=== PATIENT | female | born 1990 | race Caucasian/White ===

== ENCOUNTER 2018-10-16 10:27 | Inpatient (IN) | payer SELFPAY ==
[2018-10-16] MEDS ORDERED: Butorphanol 1 MG/ML SDV IVPUSH PRN (10:57)
[2018-10-16] MEDS ORDERED: Misoprostol 200 MCG Tab PO PRN (10:57)
[2018-10-16] MEDS ORDERED: Lidocaine 1% 50 ML MDV INJECT PRN (10:57)
[2018-10-16] MEDS ORDERED: Nalbuphine 10 MG/1 ML Vial IVPUSH PRN (10:57)
[2018-10-16] MEDS ORDERED: Methylergonovine 0.2 MG/1 ML Amp IM PRN (10:57)
[2018-10-16] MEDS ORDERED: Sodium Chloride 0.9% 10 ML Syringe FLUSH PRN (10:57)
[2018-10-16] MEDS ORDERED: Carboprost Tromethamine 250 MCG/1 ML Amp IM PRN (10:57)
[2018-10-16] MEDS ORDERED: Water For Irrigation,Sterile 1,000 ML Container IRR PRN (10:57)
[2018-10-16] MEDS ORDERED: Sodium Chloride 0.9% 2.5 ML Syringe FLUSH PRN (10:57)
[2018-10-16] MEDS ORDERED: Tranexamic Acid 1,000 MG in Sodium Chloride 0.9% 100 ML IV PRN (10:57)
[2018-10-16] MEDS ORDERED: Oxytocin/0.9 % Sodium Chloride 30 UNIT/500 ML BAG IV SCH ×3 (11:00→19:30)
[2018-10-16] MEDS ORDERED: Misoprostol 25 MCG (1/4 of 100 MCG) Tab VAG PRN ×2 (11:21)
[2018-10-16] MEDS ORDERED: Terbutaline 1 MG/ML SDV SUBCUT PRN (11:21)
[2018-10-16] MEDS ORDERED: Misoprostol 25 MCG (1/4 of 100 MCG) Tab PO ONE (11:23)
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
[2018-10-16] MEDS ORDERED: Misoprostol 25 MCG (1/4 of 100 MCG) Tab PO PRN (16:13)
[2018-10-16] MEDS ORDERED: fentaNYL 100 MCG/2 ML SDV ONE (17:15)
[2018-10-16] MEDS ORDERED: Ropivacaine 0.2% 2 MG/ML 20 ML SDV ONE (17:16)
[2018-10-16] MEDS: Lactated Ringers 1,000 ML IV SCH ×2 (17:20→21:28)
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
[2018-10-16] MEDS ORDERED: Nicotine 7 MG/24 Hr Patch TRDERM SCH (21:04)
[2018-10-17] MEDS: Lactated Ringers 1,000 ML IV SCH (03:51)
[2018-10-17] MEDS ORDERED: Docusate Sodium 100 MG Cap PO PRN (05:26)
[2018-10-17] MEDS ORDERED: Bisacodyl 10 MG Supp RECTAL PRN (05:26)
[2018-10-17] MEDS ORDERED: Lanolin 100% Cream 7 GM Tube TOP PRN (05:26)
[2018-10-17] MEDS ORDERED: Ibuprofen 400 MG Tab PO PRN (05:26)
[2018-10-17] MEDS ORDERED: Witch Hazel Medicated Pads 40/Jar TOP PRN (05:26)
[2018-10-17] MEDS ORDERED: Acetaminophen 500 MG Tab PO PRN (05:26)
[2018-10-17] MEDS ORDERED: Benzocaine/Menthol 20%-0.5% Spray 78 GM Cannister TOP PRN (05:26)
[2018-10-17] MEDS ORDERED: oxyCODONE 5 MG Tab PO PRN (05:26)
--- NOTE | 2018-10-17 06:24 | OR ---
SURGEON: Angel Franco MD DATE OF PROCEDURE: Ms. Waldron is a 28-year-old patient. She is para 2-0-0-2. She is followed in our clinic primarily by me. Her care was uncomplicated. Her GBS status was negative. She is admitted for elective induction with Cytotec and Pitocin. She responded to both of them, and she had an artificial rupture of the membrane at 4 cm, and she had epidural anesthesia for labor analgesia, and she required Pitocin augmentation. The patient progressed nicely, and heart rate was category I. Then, she was able to accomplish normal spontaneous vaginal delivery of a male fetus, cried immediately. score and weight are not available at this time, and the placenta delivered spontaneous, complete, and intact. There was no perineal or labial laceration. Estimated blood loss is 250 to 300 mL during the process of labor. There was no complication in this labor and delivery process. KRYSTAL / LIZETTE /[id number]
[2018-10-17] MEDS: Acetaminophen 500 MG Tab PO PRN ×3 (07:09→20:08)
--- NOTE | 2018-10-17 08:37 | PCM48HPAN ---
Post Anesthesia Note - EVALUATION WITHIN 48HRS OF ANESTHETIC Vital Signs in Normal Range: Yes Patient Participated in Evaluation: Yes Respiratory Function Stable: Yes Airway Patent: Yes Cardiovascular Function Stable: Yes Hydration Status Stable: Yes Pain Control Satisfactory: Yes Nausea and Vomiting Control Satisfactory: Yes Mental Status Recovered: Yes Resp Rate: 17
[2018-10-17] MEDS: Ibuprofen 800 MG Tab PO PRN (18:27)
[2018-10-18] MEDS: Ibuprofen 800 MG Tab PO PRN ×2 (04:06→10:48)
[2018-10-18] MEDS: Acetaminophen 500 MG Tab PO PRN (08:35)
--- NOTE | 2018-10-18 11:53 | PCM.DCSUM1 ---
Discharge Summary - Hospital Course Free Text/Narrative:: Discharge home with infant. Follow up in 1 week for a blood pressure check and 6 weeks for visit. Diagnosis: Stroke: No - Discharge Data Discharge Date: 10/18/18 Discharge Disposition: Home, Self-Care 01 Condition: Good - Discharge Diagnosis/Problem(s) (1) (normal spontaneous vaginal delivery) SNOMED Code(s): 07396107 ICD Code: O80 - ENCOUNTER FOR FULL-TERM UNCOMPLICATED DELIVERY Status: Acute Priority: High Current Visit: Yes - Patient Instructions Diet: Usual Diet as Tolerated Activity: As Tolerated, No Strenuous Activities, Rest and Relax Today Driving: May Drive Today Showering/Bathing: May Shower Notify Provider of: Fever, Increased Pain, Swelling and Redness, Nausea and/or Vomiting Other/Special Instructions: Discharge home with . Follow up in 1 week for a blood pressure check and 6 weeks for visit. - Discharge Plan *PRESCRIPTION DRUG MONITORING PROGRAM REVIEWED*: Not Applicable *COPY OF PRESCRIPTION DRUG MONITORING REPORT IN PATIENT BOYD: Not Applicable Home Medications: Home Meds . [No Known Home Meds] 10/16/18 [History] Oxygen Therapy Mode: Room Air - Discharge Summary/Plan Comment DC Time >30 min.: Yes - General Info Date of Service: 10/18/18 Admission Dx/Problem (Free Text: Patient Status Order with Admit Dx/Problem 10/16/18 10:57 Patient Status [ADT] Routine Admission Diagnosis/Problem Admission Diagnosis/Problem Functional Status: Reports: Pain Controlled, Tolerating Diet, Ambulating, Urinating - Review of Systems General: Reports: No Symptoms HEENT: Reports: No Symptoms Pulmonary: Reports: No Symptoms Cardiovascular: Reports: No Symptoms Gastrointestinal: Reports: No Symptoms Genitourinary: Reports: No Symptoms Musculoskeletal: Reports: No Symptoms Skin: Reports: No Symptoms Neurological: Reports: No Symptoms Psychiatric: Reports: No Symptoms - Patient Data Vitals - Most Recent: Last Vital Signs Temp 36.2 C 10/18/18 08:00 Pulse 82 10/18/18 08:00 Resp 20 10/18/18 08:00 BP 141/90 H 10/18/18 08:00 Pulse Ox 98 10/18/18 08:00 Weight - Most Recent: 95.254 kg Lab Results - Last 24 hrs: Laboratory Results - last 24 hr 10/18/18 Range/Units 06:03 Hgb 9.9 L (12.0-16.0) g/dL Hct 31.1 L (36.0-46.0) % Med Orders - Current: Current Medications Acetaminophen (Tylenol Extra Strength) 500 mg PO Q4H PRN PRN Reason: Pain Acetaminophen (Tylenol Extra Strength) 1,000 mg PO Q4H PRN PRN Reason: Pain Last Admin: 10/18/18 08:35 Dose: 1,000 mg Benzocaine/Menthol (Dermoplast Pain Relief 20%-0.5% Lucinda) 78 gm TOP ASDIRECTED PRN PRN Reason: Perineal Comfort Measure Last Admin: 10/17/18 13:03 Dose: 78 gm Bisacodyl (Dulcolax) 10 mg RECTAL ONETIME PRN PRN Reason: Constipation Butorphanol Tartrate (Stadol) 1 mg IVPUSH Q1H PRN PRN Reason: Pain Carboprost Tromethamine (Hemabate Ds) 250 mcg IM ASDIRECTED PRN PRN Reason: Post Hemorrhage Docusate Sodium (Colace) 100 mg PO BID PRN PRN Reason: Constipation Emollient Ointment (Lansinoh Hpa) 0 gm TOP ASDIRECTED PRN PRN Reason: Sore Nipples Lactated Ringer's (Ringers, Lactated) 1,000 mls @ 150 mls/hr IV ASDIRECTED KESHA Last Infusion: 10/17/18 05:18 Dose: 0 mls/hr Oxytocin/Sodium Chloride (Oxytocin 30 Unit/500 Ml-Ns) 30 unit in 500 mls @ 500 mls/hr IV TITRATE KESHA Tranexamic Acid 1,000 mg/ (Sodium Chloride) 110 mls @ 660 mls/hr IV ONETIME PRN PRN Reason: Bleeding Oxytocin/Sodium Chloride (Oxytocin 30 Unit/500 Ml-Ns) 30 unit in 500 mls @ 2 mls/hr IV TITRATE KESHA; Protocol Oxytocin/Sodium Chloride (Oxytocin 30 Unit/500 Ml-Ns) 30 unit in 500 mls @ 2 mls/hr IV TITRATE KESHA; Protocol Last Titration: 10/17/18 05:18 Dose: 500 munits/min, 500 mls/hr Ibuprofen (Motrin) 400 mg PO Q4H PRN PRN Reason: Pain Ibuprofen (Motrin) 800 mg PO Q6H PRN PRN Reason: Pain Last Admin: 10/18/18 10:48 Dose: 800 mg Lidocaine HCl (Xylocaine 1%) 50 ml INJECT ONETIME PRN PRN Reason: Laceration repair Methylergonovine Maleate (Methergine) 0.2 mg IM ASDIRECTED PRN PRN Reason: Post Hemorrhage Misoprostol (Cytotec) 200 mcg PO ONETIME PRN PRN Reason: Post Hemorrhage Misoprostol (Cytotec) 25 mcg VAG ONETIME PRN PRN Reason: Cervical Ripening Last Admin: 10/16/18 11:58 Dose: 25 mcg Misoprostol (Cytotec) 25 mcg VAG Q4H PRN PRN Reason: Cervical Ripening Misoprostol (Cytotec) 25 mcg PO Q4H PRN PRN Reason: Other Nalbuphine HCl (Nubain) 10 mg IVPUSH Q1H PRN PRN Reason: Pain (severe 7-10) Nicotine (Habitrol) 7 mg TRDERM DAILY KESHA Last Admin: 10/16/18 21:39 Dose: 7 mg Oxycodone HCl (Oxycodone) 5 mg PO Q2H PRN PRN Reason: Pain Last Admin: 10/17/18 21:22 Dose: 5 mg Sodium Chloride (Saline Flush) 10 ml FLUSH ASDIRECTED PRN PRN Reason: Keep Vein Open Sodium Chloride (Saline Flush) 2.5 ml FLUSH ASDIRECTED PRN PRN Reason: Keep Vein Open Sterile Water (Sterile Water For Irrigation) 1,000 ml IRR ASDIRECTED PRN PRN Reason: delivery Terbutaline Sulfate (Brethine) 0.25 mg SUBCUT ASDIRECTED PRN PRN Reason: Tacysystole Witch [place] (Tucks) 1 pad TOP ASDIRECTED PRN PRN Reason: comfort care Last Admin: 10/17/18 13:04 Dose: 1 pad Discontinued Medications Fentanyl (Sublimaze) Confirm Administered Dose 100 mcg .ROUTE .STK-MED ONE Stop: 10/16/18 17:16 Fentanyl/Bupivacaine HCl (Rxhhzwsr-Wikzv-Ow 2 Mcg/Ml-0.125%) Confirm Administered Dose 100 mls @ as directed .ROUTE .STK-MED ONE Stop: 10/16/18 17:16 Fentanyl/Bupivacaine HCl (Dwhyzpdj-Nxlsb-Pm 2 Mcg/Ml-0.125%) Confirm Administered Dose 100 mls @ as directed .ROUTE .STK-MED ONE Stop: 10/17/18 04:37 Misoprostol (Cytotec) 25 mcg PO ONETIME ONE Stop: 10/16/18 11:24 Last Admin: 10/16/18 12:02 Dose: 25 mcg Ropivacaine (Naropin 0.2%) Confirm Administered Dose 20 ml .ROUTE .STK-MED ONE Stop: 10/16/18 17:17 - Exam General: Reports: Alert, Oriented, Cooperative, No Acute Distress Lungs: Reports: Normal Respiratory Effort GI/Abdominal Exam: Soft, Non-Tender (Female) Exam: Deferred, Vaginal Bleeding Rectal (Female) Exam: Deferred Back Exam: Reports: Normal Inspection Extremities: Normal Inspection, Normal Range of Motion, Non-Tender, No Pedal Edema, Normal Capillary Refill Skin: Reports: Warm, Dry, Intact Neurological: Reports: No New Focal Deficit, Normal Speech, Normal Tone, Strength Equal Bilateral Psy/Mental Status: Reports: Alert, Normal Affect, Normal Mood
== END 2018-10-18 14:13 | disposition home or self-care (01) | DRG 806 ==
LOC: MW.OBCHECK 10:27 → MW.OB 10:29 → MW.OBCHECK 10:56 → MW.OB 10:57 → OBSVTOIN 10-17 05:18 → MW.OB 10-17 09:45
PROVIDERS: ADMIT Obstetrics & Gynecology; ATTEND Obstetrics & Gynecology
PROC: 3E0R3BZ Introduction of Anesthetic Agent into Spinal Canal, Percutaneous Approach (ICD-10-PCS; 2018-10-16)
PROC: 00HU33Z Insertion of Infusion Device into Spinal Canal, Percutaneous Approach (ICD-10-PCS; 2018-10-16)
PROC: 10907ZC Drainage of Amniotic Fluid, Therapeutic from Products of Conception, Via Natural or Artificial Opening (ICD-10-PCS; principal; 2018-10-17)
PROC: 3E0P7VZ Introduction of Hormone into Female Reproductive, Via Natural or Artificial Opening (ICD-10-PCS; principal; 2018-10-17)
PROC: 10E0XZZ Delivery of Products of Conception, External Approach (ICD-10-PCS; principal; 2018-10-17)
PROC: 3E033VJ Introduction of Other Hormone into Peripheral Vein, Percutaneous Approach (ICD-10-PCS; principal; 2018-10-17)
DX: O48.0 Post-term pregnancy (principal); O99.354 Diseases of the nervous system complicating childbirth; Z37.0 Single live birth; O99.344 Other mental disorders complicating childbirth; F41.9 Anxiety disorder, unspecified; F32.9 Major depressive disorder, single episode, unspecified; G43.909 Migraine, unspecified, not intractable, without status migrainosus; O99.334 Smoking (tobacco) complicating childbirth; F17.210 Nicotine dependence, cigarettes, uncomplicated; Z3A.40 40 weeks gestation of pregnancy
CPT/HCPCS: 36415; 51702; 59025; 59409; 85014; 85018; 85027; 86850; 86900; 86901; A9270-GY; J2590; J7120

== ENCOUNTER 2019-11-21 05:42 | Inpatient (IN) | payer BC ==
[2019-11-21] MEDS ORDERED: Misoprostol 50 MCG (1/2 of 100 MCG) Tab PO SCH (06:00)
[2019-11-21] MEDS ORDERED: Nalbuphine 10 MG/1 ML Vial IVPUSH PRN (06:03)
[2019-11-21] MEDS ORDERED: Water For Irrigation,Sterile 1,000 ML Container IRR PRN (06:03)
[2019-11-21] MEDS ORDERED: Carboprost Tromethamine 250 MCG/1 ML Amp IM PRN (06:03)
[2019-11-21] MEDS ORDERED: Sodium Chloride 0.9% 10 ML SDV IV PRN (06:03)
[2019-11-21] MEDS ORDERED: Butorphanol 1 MG/ML SDV IVPUSH PRN (06:03)
[2019-11-21] MEDS ORDERED: Terbutaline 1 MG/ML SDV SUBCUT PRN (06:03)
[2019-11-21] MEDS ORDERED: Lidocaine 1% 50 ML MDV INJECT PRN (06:03)
[2019-11-21] MEDS ORDERED: Sodium Chloride 0.9% 2.5 ML Syringe FLUSH PRN (06:03)
[2019-11-21] MEDS ORDERED: Sodium Chloride 0.9% 10 ML Syringe FLUSH PRN (06:03)
[2019-11-21] MEDS ORDERED: Tranexamic Acid 1,000 MG in Sodium Chloride 0.9% 100 ML IV PRN (06:03)
[2019-11-21] MEDS ORDERED: Methylergonovine 0.2 MG/1 ML Amp IM PRN (06:03)
[2019-11-21] MEDS ORDERED: Misoprostol 25 MCG (1/4 of 100 MCG) Tab VAG PRN ×2 (06:03)
[2019-11-21] MEDS ORDERED: Misoprostol 200 MCG Tab PO PRN (06:03)
[2019-11-21] MEDS ORDERED: Oxytocin/0.9 % Sodium Chloride 30 UNIT/500 ML BAG IV SCH (06:15)
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
[2019-11-21] MEDS: Lactated Ringers 1,000 ML IV SCH ×2 (12:40→13:21)
[2019-11-21] MEDS ORDERED: fentaNYL 100 MCG/2 ML SDV ONE (12:42)
[2019-11-21] MEDS ORDERED: Ropivacaine HCl/PF 100 ML ONE (12:43)
[2019-11-21] MEDS ORDERED: Ropivacaine 0.2% PF 2 MG/ML 20 ML SDV ONE (12:43)
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
--- NOTE | 2019-11-21 13:44 | PCM.SN ---
- Free Text/Narrative Note: Requested for BESSY. active labor, ~3-4cm. Pain 10/10. Previous BESSY, 1 sided. Discussed, ? answered, fluid bolus in progress, permit signed. Procedure without issues. Space ID'd on 2nd pass via KIEL @ L3-L4. Catheter to 10cm due to height without issues. Test negative with 3ml 1.0% lido with 1:200K epi added. Occlusive Drsg. Bolus 12ml Naropin 0.2% + 100 mcg fentanyl over 7 minutes, 13:05-12. Pain 3/10 6 minutes post. 13:45 Infusion started, 10ml/hr with 4ml/q15 bolus. Pain 0/10. Tolerated well. VSS. No issues at present.
[2019-11-21] MEDS: Oxytocin/0.9 % Sodium Chloride 30 UNIT/500 ML BAG IV SCH (14:51)
[2019-11-21] MEDS ORDERED: Bisacodyl 10 MG Supp RECTAL PRN (14:59)
[2019-11-21] MEDS ORDERED: Lanolin 100% Cream 7 GM Tube TOP PRN (14:59)
[2019-11-21] MEDS ORDERED: Docusate Sodium 100 MG Cap PO PRN (14:59)
[2019-11-21] MEDS ORDERED: Witch Hazel Medicated Pads 40/Jar TOP PRN (14:59)
[2019-11-21] MEDS ORDERED: Acetaminophen 500 MG Tab PO PRN (14:59)
[2019-11-21] MEDS ORDERED: oxyCODONE 5 MG Tab PO PRN (14:59)
[2019-11-21] MEDS ORDERED: Ibuprofen 400 MG Tab PO PRN (14:59)
[2019-11-21] MEDS ORDERED: Benzocaine/Menthol 20%-0.5% Spray 78 GM Cannister TOP PRN (14:59)
[2019-11-21] MEDS: Ibuprofen 800 MG Tab PO PRN (20:59)
[2019-11-21] MEDS: Acetaminophen 500 MG Tab PO PRN (22:23)
[2019-11-22] MEDS: Ibuprofen 800 MG Tab PO PRN (04:30)
[2019-11-22] MEDS: Acetaminophen 500 MG Tab PO PRN ×2 (04:30→09:01)
--- NOTE | 2019-11-22 07:42 | PCM48HPAN ---
Post Anesthesia Note - EVALUATION WITHIN 48HRS OF ANESTHETIC Vital Signs in Normal Range: Yes Patient Participated in Evaluation: Yes Respiratory Function Stable: Yes Airway Patent: Yes Cardiovascular Function Stable: Yes Hydration Status Stable: Yes Pain Control Satisfactory: Yes Nausea and Vomiting Control Satisfactory: Yes Mental Status Recovered: Yes Vital Signs: Last Vital Signs Temp 36.4 C 11/22/19 04:05 Pulse 83 11/22/19 04:05 Resp 18 11/22/19 04:05 BP 137/82 11/22/19 04:05 Pulse Ox 96 11/22/19 04:05 - COMMENTS/OBSERVATIONS Free Text/Narrative:: Doing well. No problems noted.
[2019-11-22] MEDS ORDERED: NIFEdipine 30 MG Tab.ER PO SCH ×2 (09:00)
--- NOTE | 2019-11-22 09:00 | PCM.PNPP ---
- General Info Date of Service: 11/22/19 Admission Dx/Problem (Free Text): Keiko is a 29 yo S/P uncomplicated of NBF 1 day ago following elective IOL at 40.0 weeks gestation. A pos, RI, GBS neg. Pertinent hx: every day smoker, desires sterilization. Bottle feeding. Patient resting quietly in bed, reports she is independently voiding, intaking food and hydration. Denies ALMARAZ, dizziness, SOB, fever, cough, visual changes, edema, or any other problems at this time. Patient reports moderate rubra lochia with no clots. Pain well managed at this time. Consistent PP BPs 150s/90 (MAPs 110s). BP 154/97 (116); HR 71; T 97.3; 98% O2 on RA. Dr. Franco notified. CBC, CMP, random PC ratio ( urine), results pending. Start nifedipine XL 30 mg BID now. Plan to discharge tomorrow pending BPs/labs. Functional Status: Reports: Pain Controlled - Review of Systems General: Reports: No Symptoms HEENT: Reports: No Symptoms Pulmonary: Reports: No Symptoms Cardiovascular: Reports: No Symptoms Gastrointestinal: Reports: No Symptoms Genitourinary: Reports: No Symptoms Musculoskeletal: Reports: No Symptoms Skin: Reports: No Symptoms Neurological: Reports: No Symptoms Psychiatric: Reports: No Symptoms - General Info Date of Service: 11/22/19 - Patient Data Vital Signs - Most Recent: Last Vital Signs Temp 97.3 F 11/22/19 07:49 Pulse 71 11/22/19 07:49 Resp 18 11/22/19 07:49 BP 154/97 H 11/22/19 07:49 Pulse Ox 98 11/22/19 07:49 Weight - Most Recent: 216 lb Lab Results - Last 24 Hours: Laboratory Results - last 24 hr 11/22/19 Range/Units 06:45 Hgb 10.8 L (12.0-16.0) g/dL Hct 34.6 L (36.0-46.0) % Med Orders - Current: Current Medications Acetaminophen (Tylenol Extra Strength) 500 mg PO Q4H PRN PRN Reason: Pain Acetaminophen (Tylenol Extra Strength) 1,000 mg PO Q4H PRN PRN Reason: Pain Last Admin: 11/22/19 04:30 Dose: 1,000 mg Benzocaine/Menthol (Dermoplast Pain Relief 20%-0.5% Dalton) 78 gm TOP ASDIRECTED PRN PRN Reason: Perineal Comfort Measure Bisacodyl (Dulcolax) 10 mg RECTAL ONETIME PRN PRN Reason: Constipation Butorphanol Tartrate (Stadol) 1 mg IVPUSH Q1H PRN PRN Reason: Pain Carboprost Tromethamine (Hemabate Ds) 250 mcg IM ASDIRECTED PRN PRN Reason: Post Hemorrhage Docusate Sodium (Colace) 100 mg PO BID PRN PRN Reason: Constipation Emollient Ointment (Lansinoh Hpa) 0 gm TOP ASDIRECTED PRN PRN Reason: Sore Nipples Lactated Ringer's (Ringers, Lactated) 1,000 mls @ 150 mls/hr IV ASDIRECTED KESHA Last Admin: 11/21/19 13:21 Dose: 150 mls/hr Oxytocin/Sodium Chloride (Oxytocin 30 Unit/500 Ml-Ns) 30 unit in 500 mls @ 999 mls/hr IV TITRATE [facility] Last Admin: 11/21/19 14:51 Dose: 500 mls/hr Oxytocin/Sodium Chloride (Oxytocin 30 Unit/500 Ml-Ns) 30 unit in 500 mls @ 2 mls/hr IV TITRATE [facility]; Protocol Tranexamic Acid 1,000 mg/ (Sodium Chloride) 110 mls @ 660 mls/hr IV ONETIME PRN PRN Reason: Bleeding Ibuprofen (Motrin) 400 mg PO Q4H PRN PRN Reason: Pain Ibuprofen (Motrin) 800 mg PO Q6H PRN PRN Reason: Pain Last Admin: 11/22/19 04:30 Dose: 800 mg Lidocaine HCl (Xylocaine 1%) 50 ml INJECT ONETIME PRN PRN Reason: Laceration repair Methylergonovine Maleate (Methergine) 0.2 mg IM ASDIRECTED PRN PRN Reason: Post Hemorrhage Misoprostol (Cytotec) 200 mcg PO ONETIME PRN PRN Reason: Post Hemorrhage Misoprostol (Cytotec) 25 mcg VAG ONETIME PRN PRN Reason: Cervical Ripening Last Admin: 11/21/19 06:41 Dose: 25 mcg Misoprostol (Cytotec) 25 mcg VAG Q4H PRN PRN Reason: Cervical Ripening Misoprostol (Cytotec) 25 mcg PO Q4H [facility] Last Admin: 11/21/19 06:52 Dose: 25 mcg Nalbuphine HCl (Nubain) 10 mg IVPUSH Q1H PRN PRN Reason: Pain (severe 7-10) Nifedipine (Procardia Xl) 30 mg PO BID [facility] Oxycodone HCl (Oxycodone) 5 mg PO Q2H PRN PRN Reason: Pain Sodium Chloride (Saline Flush) 10 ml FLUSH ASDIRECTED PRN PRN Reason: Keep Vein Open Sodium Chloride (Saline Flush) 2.5 ml FLUSH ASDIRECTED PRN PRN Reason: Keep Vein Open Sodium Chloride (Normal Saline) 10 ml IV ASDIRECTED PRN PRN Reason: IV Use Sterile Water (Sterile Water For Irrigation) 1,000 ml IRR ASDIRECTED PRN PRN Reason: delivery Terbutaline Sulfate (Brethine) 0.25 mg SUBCUT ASDIRECTED PRN PRN Reason: Tacysystole Witch [place] (Tucks) 1 pad TOP ASDIRECTED PRN PRN Reason: comfort care Discontinued Medications Fentanyl (Sublimaze) Confirm Administered Dose 100 mcg .ROUTE .STK-MED ONE Stop: 11/21/19 12:43 Ropivacaine (Naropin 0.2%) Confirm Administered Dose 100 mls @ as directed .ROUTE .STK-MED ONE Stop: 11/21/19 12:44 Nifedipine (Procardia Xl) 30 mg PO BID [facility] Ropivacaine (Naropin 0.2%) Confirm Administered Dose 20 ml .ROUTE .STK-MED ONE Stop: 11/21/19 12:44 - Interaction Infant Disposition, : at Bedside Infant Interaction: Not Interacting Feeding: Bottle Fed Support Person: - Recovery Exam Fundal Tone: Firm Fundal Level: 2 Fingerbreadths Below Umbilicus Fundal Placement: Midline Lochia Amount: Scant Lochia Color: Rubra/Red Perineum Description: Intact, Minimal Bruising/Swelling Episiotomy/Laceration: None Bladder Status: Voiding - Exam General: Alert, Oriented HEENT: Pupils Equal, Mucous Membr. Moist/Benld Neck: Supple Lungs: Clear to Auscultation, Normal Respiratory Effort Cardiovascular: Regular Rate, Regular Rhythm GI/Abdominal Exam: Normal Bowel Sounds, Soft, Non-Tender, No Organomegaly, No Distention Extremities: Normal Inspection, Normal Range of Motion, Non-Tender, No Pedal Edema, Normal Capillary Refill Skin: Warm, Dry, Intact Neurological: No New Focal Deficit Psy/Mental Status: Alert, Normal Affect, Normal Mood - Problem List & Annotations (1) care following vaginal delivery SNOMED Code(s): 184741303, 449995630 Code(s): Z39.2 - ENCOUNTER FOR ROUTINE FOLLOW-UP Status: Acute Priority: High Current Visit: Yes (2) hypertension SNOMED Code(s): 96206715, 23101274, 822084568 Code(s): O16.5 - UNSPECIFIED MATERNAL HYPERTENSION, COMP THE PUERPERIUM Status: Acute Priority: High Current Visit: Yes - Problem List Review Problem List Initiated/Reviewed/Updated: Yes - My Orders Last 24 Hours: My Active Orders 11/22/19 06:45 CBC WITH MANUAL DIFF [HEME] Routine CMP [COMPREHENSIVE METABOLIC PN,CMP] [CHEM] Routine 11/22/19 08:24 PROTEIN/CREATININE RATIO,URINE [URCHEM] Routine 11/22/19 09:00 NIFEdipine [Procardia XL] 30 mg PO BID - Assessment Assessment:: Consistent PP BPs 150s/90 (MAPs 110s). BP 154/97 (116); HR 71; T 97.3; 98% O2 on RA. Dr. Franco notified. CBC, CMP, random PC ratio (urine), results pending. Start nifedipine XL 30 mg BID now. Plan to discharge tomorrow pending BPs/labs. - Plan Plan:: IUP 39+wks admitted for elective induction.
[2019-11-22 09:09] LABS: BLOOD UREA NITROGEN,BUN 11 mg/dL (7.0-18.0); CHLORIDE,CL 106 mmol/L (98-107); GLUCOSE RANDOM 92 mg/dL (74-106); POTASSIUM,K 4.4 mmol/L (3.5-5.1); SODIUM,NA 139 mmol/L (136-145)
--- NOTE | 2019-11-22 10:27 | OR ---
SURGEON: Angel Franco MD DATE OF PROCEDURE: 11/21/2019 Ms. Aden, age 29. She is para 3-0-0-3. She is followed in our clinic, primarily by our nurse midwifes, and the patient is admitted for elective induction. She is 39 weeks. Her GBS status was negative. She had no issue. The patient was admitted and induced with Cytotec. She received 1 dose of Cytotec. This morning she was 3 to 4, 70 vertex, and -1 station. I did an artificial rupture of the membrane. The patient had epidural anesthesia for labor analgesia. She is continued to have contracted spontaneously and she became complete, and she was able to accomplish normal spontaneous vaginal delivery of a female fetus. She cried immediately. score reported to be 9 and 9 and the weight is not available. The placenta delivered spontaneous, complete, and intact. There was no laceration. Episiotomy was not needed. An estimated blood loss was 300 to 350 mL. heart rate was category 1 through the entire process of labor. There was no complication in the labor and in the delivery process. KRYSTAL / LIZETTE /[id number]
--- NOTE | 2019-11-22 13:28 | PCM.DCSUM1 ---
Discharge Summary - Hospital Course Diagnosis: Stroke: No - Discharge Data Discharge Date: 11/22/19 Discharge Disposition: Home, Self-Care 01 Condition: Good - Referral to Home Health Primary Care Physician: PCP None - Patient Instructions Diet: Usual Diet as Tolerated Activity: As Tolerated - Discharge Plan Home Medications: Home Meds . [No Known Home Meds] 10/16/18 [History] Referrals: [facility] [Outside] RichardsonMonique conrad CNM [Mid-] - 01/03/20 2:15 pm - Discharge Summary/Plan Comment DC Time >30 min.: Yes - General Info Date of Service: 11/22/19 Functional Status: Reports: Pain Controlled - Review of Systems General: Reports: No Symptoms HEENT: Reports: No Symptoms Pulmonary: Reports: No Symptoms Cardiovascular: Reports: No Symptoms Gastrointestinal: Reports: No Symptoms Genitourinary: Reports: No Symptoms Musculoskeletal: Reports: No Symptoms Skin: Reports: No Symptoms Neurological: Reports: No Symptoms Psychiatric: Reports: No Symptoms - Patient Data Vitals - Most Recent: Last Vital Signs Temp 36.6 C 11/22/19 11:44 Pulse 79 11/22/19 11:44 Resp 18 11/22/19 11:44 BP 135/75 11/22/19 11:44 Pulse Ox 98 11/22/19 11:44 Weight - Most Recent: 97.976 kg Lab Results - Last 24 hrs: Laboratory Results - last 24 hr 11/22/19 11/22/19 11/22/19 Range/Units 06:45 06:45 06:45 WBC 9.36 (4.0-11.0) K/uL RBC 3.84 L (4.30-5.90) M/uL Hgb Cancelled 10.8 L Hct Cancelled 34.2 L MCV 89.1 (80.0-98.0) fL MCH 28.1 (27.0-32.0) pg MCHC 31.6 (31.0-37.0) g/dL RDW Std Deviation 49.1 (28.0-62.0) fl RDW Coeff of Eugenia 15 (11.0-15.0) % Plt Count 277 (150-400) K/uL MPV 9.90 (7.40-12.00) fL Neutrophils % (Manual) 66 (48.0-80.0) % Lymphocytes % (Manual) 32 (16.0-40.0) % Monocytes % (Manual) 2 (0.0-15.0) % Nucleated RBC % 0.0 /100WBC Absolute Seg Neuts 6.2 H (1.4-5.7) Lymphocytes # (Manual) 3.0 H (0.6-2.4) Monocytes # (Manual) 0.2 (0.0-0.8) Sodium 139 (136-145) mmol/L Potassium 4.4 (3.5-5.1) mmol/L Chloride 106 (98-107) mmol/L Carbon Dioxide 25.0 (21.0-32.0) mmol/L BUN 11 (7.0-18.0) mg/dL Creatinine 0.6 (0.6-1.0) mg/dL Est Cr Clr Drug Dosing 159.65 mL/min Estimated GFR (MDRD) > 60.0 ml/min Glucose 92 (74-106) mg/dL Calcium 8.4 L (8.5-10.1) mg/dL Total Bilirubin 0.2 (0.2-1.0) mg/dL AST 23 (15-37) IU/L ALT 17 (14-63) IU/L Alkaline Phosphatase 137 H (46-116) U/L Total Protein 5.7 L (6.4-8.2) g/dL Albumin 2.3 L (3.4-5.0) g/dL Globulin 3.4 (2.6-4.0) g/dL Albumin/Globulin Ratio 0.7 L (0.9-1.6) Ur Random Creatinine mg/dL U Random Total Protein (<11.9) mg/dL Protein/Creatinin Ratio 11/21/ Range/Units 09:05 WBC (4.0-11.0) K/uL RBC (4.30-5.90) M/uL Hgb Hct MCV (80.0-98.0) fL MCH (27.0-32.0) pg MCHC (31.0-37.0) g/dL RDW Std Deviation (28.0-62.0) fl RDW Coeff of Eugenia (11.0-15.0) % Plt Count (150-400) K/uL MPV (7.40-12.00) fL Neutrophils % (Manual) (48.0-80.0) % Lymphocytes % (Manual) (16.0-40.0) % Monocytes % (Manual) (0.0-15.0) % Nucleated RBC % /100WBC Absolute Seg Neuts (1.4-5.7) Lymphocytes # (Manual) (0.6-2.4) Monocytes # (Manual) (0.0-0.8) Sodium (136-145) mmol/L Potassium (3.5-5.1) mmol/L Chloride (98-107) mmol/L Carbon Dioxide (21.0-32.0) mmol/L BUN (7.0-18.0) mg/dL Creatinine (0.6-1.0) mg/dL Est Cr Clr Drug Dosing mL/min Estimated GFR (MDRD) ml/min Glucose (74-106) mg/dL Calcium (8.5-10.1) mg/dL Total Bilirubin (0.2-1.0) mg/dL AST (15-37) IU/L ALT (14-63) IU/L Alkaline Phosphatase (46-116) U/L Total Protein (6.4-8.2) g/dL Albumin (3.4-5.0) g/dL Globulin (2.6-4.0) g/dL Albumin/Globulin Ratio (0.9-1.6) Ur Random Creatinine 64.6 mg/dL U Random Total Protein 37.1 H (<11.9) mg/dL Protein/Creatinin Ratio 0.6 Med Orders - Current: Current Medications Acetaminophen (Tylenol Extra Strength) 500 mg PO Q4H PRN PRN Reason: Pain Acetaminophen (Tylenol Extra Strength) 1,000 mg PO Q4H PRN PRN Reason: Pain Last Admin: 11/22/19 09:01 Dose: 1,000 mg Benzocaine/Menthol (Dermoplast Pain Relief 20%-0.5% [place]) 78 gm TOP ASDIRECTED PRN PRN Reason: Perineal Comfort Measure Bisacodyl (Dulcolax) 10 mg RECTAL ONETIME PRN PRN Reason: Constipation Butorphanol Tartrate (Stadol) 1 mg IVPUSH Q1H PRN PRN Reason: Pain Carboprost Tromethamine (Hemabate Ds) 250 mcg IM ASDIRECTED PRN PRN Reason: Post Hemorrhage Docusate Sodium (Colace) 100 mg PO BID PRN PRN Reason: Constipation Emollient Ointment (Lansinoh Hpa) 0 gm TOP ASDIRECTED PRN PRN Reason: Sore Nipples Lactated Ringer's (Ringers, Lactated) 1,000 mls @ 150 mls/hr IV ASDIRECTED [facility] Last Admin: 11/21/19 13:21 Dose: 150 mls/hr Oxytocin/Sodium Chloride (Oxytocin 30 Unit/500 Ml-Ns) 30 unit in 500 mls @ 999 mls/hr IV TITRATE [facility] Last Admin: 11/21/19 14:51 Dose: 500 mls/hr Oxytocin/Sodium Chloride (Oxytocin 30 Unit/500 Ml-Ns) 30 unit in 500 mls @ 2 mls/hr IV TITRATE [facility]; Protocol Tranexamic Acid 1,000 mg/ (Sodium Chloride) 110 mls @ 660 mls/hr IV ONETIME PRN PRN Reason: Bleeding Ibuprofen (Motrin) 400 mg PO Q4H PRN PRN Reason: Pain Ibuprofen (Motrin) 800 mg PO Q6H PRN PRN Reason: Pain Last Admin: 11/22/19 04:30 Dose: 800 mg Lidocaine HCl (Xylocaine 1%) 50 ml INJECT ONETIME PRN PRN Reason: Laceration repair Methylergonovine Maleate (Methergine) 0.2 mg IM ASDIRECTED PRN PRN Reason: Post Hemorrhage Misoprostol (Cytotec) 200 mcg PO ONETIME PRN PRN Reason: Post Hemorrhage Misoprostol (Cytotec) 25 mcg VAG ONETIME PRN PRN Reason: Cervical Ripening Last Admin: 11/21/19 06:41 Dose: 25 mcg Misoprostol (Cytotec) 25 mcg VAG Q4H PRN PRN Reason: Cervical Ripening Misoprostol (Cytotec) 25 mcg PO Q4H [facility] Last Admin: 11/21/19 06:52 Dose: 25 mcg Nalbuphine HCl (Nubain) 10 mg IVPUSH Q1H PRN PRN Reason: Pain (severe 7-10) Nifedipine (Procardia Xl) 30 mg PO BID [facility] Last Admin: 11/22/19 09:01 Dose: 30 mg Oxycodone HCl (Oxycodone) 5 mg PO Q2H PRN PRN Reason: Pain Sodium Chloride (Saline Flush) 10 ml FLUSH ASDIRECTED PRN PRN Reason: Keep Vein Open Sodium Chloride (Saline Flush) 2.5 ml FLUSH ASDIRECTED PRN PRN Reason: Keep Vein Open Sodium Chloride (Normal Saline) 10 ml IV ASDIRECTED PRN PRN Reason: IV Use Sterile Water (Sterile Water For Irrigation) 1,000 ml IRR ASDIRECTED PRN PRN Reason: delivery Terbutaline Sulfate (Brethine) 0.25 mg SUBCUT ASDIRECTED PRN PRN Reason: Tacysystole Witch [place] (Tucks) 1 pad TOP ASDIRECTED PRN PRN Reason: comfort care Discontinued Medications Fentanyl (Sublimaze) Confirm Administered Dose 100 mcg .ROUTE .STK-MED ONE Stop: 11/21/19 12:43 Ropivacaine (Naropin 0.2%) Confirm Administered Dose 100 mls @ as directed .ROUTE .STK-MED ONE Stop: 11/21/19 12:44 Nifedipine (Procardia Xl) 30 mg PO BID KESHA Ropivacaine (Naropin 0.2%) Confirm Administered Dose 20 ml .ROUTE .STK-MED ONE Stop: 11/21/19 12:44 - Exam General: Reports: Alert, Oriented HEENT: Reports: Pupils Equal, Pupils Reactive, EOMI, Mucous Membr. Moist/[place] Neck: Reports: Supple Lungs: Reports: Clear to Auscultation, Normal Respiratory Effort Cardiovascular: Reports: Regular Rate, Regular Rhythm GI/Abdominal Exam: Normal Bowel Sounds, Soft, Non-Tender, No Organomegaly, No Distention, No Abnormal Bruit, No Mass, Pelvis Stable (Female) Exam: Normal External Exam, Normal Speculum Exam, Normal Bimanual Exam Rectal (Female) Exam: Normal Exam, Normal Rectal Tone Back Exam: Reports: Normal Inspection, Full Range of Motion Extremities: Normal Inspection, Normal Range of Motion, Non-Tender, No Pedal Edema, Normal Capillary Refill Skin: Reports: Warm, Dry, Intact Wound/Incisions: Reports: Healing Well Neurological: Reports: No New Focal Deficit Psy/Mental Status: Reports: Alert, Normal Affect, Normal Mood
== END 2019-11-22 17:25 | disposition home or self-care (01) | DRG 560 ==
LOC: MW.OBCHECK 05:42 → MW.OB 05:43 → OBSVTOIN 15:00 → MW.OB 17:00
PROVIDERS: ADMIT Obstetrics & Gynecology; ATTEND Obstetrics & Gynecology
PROC: 10E0XZZ Delivery of Products of Conception, External Approach (ICD-10-PCS; principal; 2019-11-21)
PROC: 10907ZC Drainage of Amniotic Fluid, Therapeutic from Products of Conception, Via Natural or Artificial Opening (ICD-10-PCS; 2019-11-21)
PROC: 3E033VJ Introduction of Other Hormone into Peripheral Vein, Percutaneous Approach (ICD-10-PCS; 2019-11-21)
DX: O99.334 Smoking (tobacco) complicating childbirth (principal); F17.210 Nicotine dependence, cigarettes, uncomplicated; Z3A.40 40 weeks gestation of pregnancy; Z37.0 Single live birth; O16.5 Unspecified maternal hypertension, complicating the puerperium
CPT/HCPCS: 01967; 36415; 51702; 59025; 59409; 80053; 82570; 84156; 85007; 85027; 86592; 86593; 86850; 86900; 86901; A9270-GY; J2590; J7120